=== PATIENT | female | born 1965 | race American Indian/Alaskan Native ===

== ENCOUNTER 2017-09-19 14:13 | Inpatient (IN) | payer BC, OTHER ==
--- NOTE | 2017-09-19 14:57 | Emergency Department Report ---
Chief Complaint: Chest Pain Stated Complaint: CHEST PAIN Time Seen by Provider: 09/19/17 14:44 - HPI History of Present Illness: 52-year-old female with a history of diabetes on insulin 70/30 presents to ED complaining of chest pain times today. Patient states she has been feeling generalized weakness for the past couple of days. Patient states she has been started today. She states chest pain feels like a pressure type pain in her chest. She denies radiation anywhere else. Patient also admits to sore throat that hurts when she swallows. Patient states she took her insulin this morning and her blood glucose has been in the 300s and was 390 something this morning. Patient states she has not eating today He denies serious last chills/nausea/vomiting/abdominal pain - ROS Review of Systems: As noted in HPI - Exam Vital Signs: Vital Signs 09/19/17 14:26 Temperature 100.1 F H Pulse Rate 81 Respiratory 20 Rate Blood Pressure 185/87 O2 Sat by Pulse 99 Oximetry Physical Exam: GENERAL: Alert and oriented x3, no apparent distress, Normal Gait, atraumatic. HEAD: Head is normocephalic and a-traumatic. EYES: Extra ocular muscles are intact. Pupils are equal, round, and reactive to light and accommodation. EARS: symetrical, atraumatic, non tender, ear canal clear and moderate cerumen, tympanic membrance non inflamed. gross auditory nml bilaterally. NOSE: Nose symetrical, Nontender,Nares appeared normal. MOUTH:Mouth is well hydrated and without lesions. Tonsils and Uvula not visualized, Tongue elevated. Patient unable to all plan wide enough to see uvula and tonsils. Patent airways. NECK: Supple. Non edematous, No carotid bruits. No lymphadenopathy or thyromegaly. No C-spine tenderness LUNGS: Symetrical with respiration, No wheezing, no rales or crackles, CTAB. HEART: S1, S2 present, regular rate and rhythm without murmur, no rubs, no gallops. Non tender to palpation SKIN: Warm and dry, No lesions, No ulceration or induration present. MSE screening note: Focused history and physical exam performed. Due to findings the following was ordered: ED Medical Decision Making - Medical Decision Making 52-year-old female presents in mild distress due to pain CBC, CMP, normal saline, hyperglycemia protocol ordered. Point of care glucose fingerstick was greater than 500. Patient to be placed in a hallway bed or find one as soon as possible to start fluids. charge nurse notified Patient's recent lady physician ED Disposition for MSE Condition: Stable
[2017-09-19 15:32] LABS: Basophils % (Auto) 0.7 % (0.0-1.8); Eosinophils % (Auto) 0.2 % (0.0-4.3); Hematocrit 37.1 % (30.3-42.9); Hemoglobin 12.5 gm/dl (10.1-14.3); Mean Corpuscular HGB Conc 34 % (30-34); Mean Corpuscular Hemoglobin 29 pg (28-32); Mean Corpuscular Volume 86 fl (79-97); Platelet Count 182 K/mm3 (140-440); Red Blood Count 4.32 M/mm3 (3.65-5.03); Red Cell Distribution Width 14.2 % (13.2-15.2)
[2017-09-19 15:50] LABS: Alanine Aminotransferase 27 units/L (7-56); Albumin 3.8 g/dL (3.9-5); Albumin/Globulin Ratio 1.1 %; Alkaline Phosphatase 137 units/L (35-129); Anion Gap 27 mmol/L; BUN/Creatinine Ratio 22; Blood Urea Nitrogen 22 mg/dL (7-17); Calcium 8.7 mg/dL (8.4-10.2); Carbon Dioxide 18 mmol/L (22-30); Chloride 91.2 mmol/L (98-107); Potassium 4.2 mmol/L (3.6-5.0); Sodium 132 mmol/L (137-145); Total Protein 7.4 g/dL (6.3-8.2)
[2017-09-19 15:51] LABS: Bilirubin,Urine NEG (Negative); Blood,Urine SM (Negative); Ketones,Urine 20 mg/dL (Negative); Leukocyte Esterase,Urine NEG (Negative); Mucus,Urine FEW /HPF; Nitrite,Urine NEG (Negative); Protein,Urine <15 mg/dL mg/dL (Negative); Urobilinogen,Urine < 2.0 mg/dL (<2.0)
[2017-09-19 15:53] LABS: Glucose 558 mg/dL (65-100)
[2017-09-19] MEDS ORDERED: NACL 0.9% 1000 ML 1,000 ML ONE (15:55)
[2017-09-19] MEDS ORDERED: D50W (25GM) Syringe IV PRN (17:42)
[2017-09-19] MEDS ORDERED: TORADOL IV ONE (17:54)
[2017-09-19] MEDS ORDERED: TYLENOL PO ONE (17:56)
[2017-09-19] MEDS ORDERED: NovoLIN R 100 UNITS in NACL 0.9% 99 ML IV SCH (18:00)
--- NOTE | 2017-09-19 18:51 | Emergency Department Report ---
ED Chest Pain HPI - General Chief Complaint: Chest Pain Stated Complaint: CHEST PAIN Time Seen by Provider: 09/19/17 14:44 Source: patient Mode of arrival: Ambulatory Limitations: No Limitations - History of Present Illness Initial Comments: 52 YO TYPE I DM HER WITH C/O CHEST PAIN, COUGHING WEAKNESS, FEVER FOR 2 DAYS. PT IS C/O LEFT FOOT PAIN WELL. PT FEELS THAT THERE IS A PULLING IN HER CHEST. SHE ALSO HAD A SORE THROAT YESTERDAY AND HEADACHE. SHE HAS BEEN A DIABETIC SINCE 5 YEARS OLD. Severity scale (0 -10): 8 - Related Data Allergies Allergy/AdvReac Type Severity Reaction Status Date / Time No Known Allergies Allergy Unverified 09/19/17 14:26 Heart Score - HEART Score History: Slightly suspicious Age: 45-65 Risk factors: 1-2 risk factors Troponin: < normal limit ED Review of Systems ROS: Stated complaint: CHEST PAIN Other details as noted in HPI Constitutional: denies: chills, fever Eyes: denies: eye pain, eye discharge, vision change ENT: throat pain. denies: ear pain Respiratory: denies: cough, shortness of breath, wheezing Cardiovascular: denies: chest pain, palpitations Endocrine: no symptoms reported Gastrointestinal: denies: abdominal pain, nausea, diarrhea Genitourinary: denies: urgency, dysuria, discharge Musculoskeletal: arthralgia (LEFT FOOT-RECURRENT). denies: back pain, joint swelling Skin: denies: rash, lesions Neurological: headache, weakness. denies: paresthesias Psychiatric: denies: anxiety, depression Hematological/Lymphatic: denies: easy bleeding, easy bruising ED Past Medical Hx - Past Medical History Previous Medical History?: Yes Hx Hypertension: Yes Hx Diabetes: Yes (Type 1) Additional medical history: Left foot pain - Surgical History Past Surgical History?: Yes Additional Surgical History: - Social History Smoking Status: Never Smoker Substance Use Type: Prescribed ED Physical Exam - General Limitations: No Limitations ED Course Vital Signs 09/19/17 09/19/17 09/19/17 14:26 15:19 15:38 Temperature 100.1 F H Pulse Rate 81 66 Respiratory 20 Rate Blood Pressure 185/87 Blood Pressure 156/72 [Left] O2 Sat by Pulse 99 99 100 Oximetry 09/19/17 19:19 Temperature Pulse Rate 69 Respiratory 20 Rate Blood Pressure Blood Pressure 156/76 [Left] O2 Sat by Pulse 100 Oximetry ED Medical Decision Making - Lab Data Result diagrams: 09/19/17 15:01 09/19/17 15:01 - Medical Decision Making RAPID STREP AND RAPID INFLUENZA HAVE NOT BEEN COLLECTED BY THE PRIOR NURSE. CURRENT NNURSE JUST TOLD TO COLLECT THESE Critical care attestation.: If time is entered above; I have spent that time in minutes in the direct care of this critically ill patient, excluding procedure time. ED Disposition Clinical Impression: HTN (hypertension) DKA (diabetic ketoacidoses) Qualifiers: Diabetes mellitus type: type 1 Diabetes mellitus complication detail: without coma Qualified Code(s): E10.10 - Type 1 diabetes mellitus with ketoacidosis without coma Fever Qualifiers: Fever type: unspecified Qualified Code(s): R50.9 - Fever, unspecified Does the pt Need Aspirin: No Condition: Stable Instructions: Diabetic Ketoacidosis (ED), Hypertension (ED) Referrals: JADIEL GARZA MD [Primary Care Provider] - 3-5 Days Time of Disposition: 19:10 (CASE REVIEWED WITH DR LING AND HE WILL DISCUSS HER [employer] INCOMING HOSPITALIST AND FET HER ADMITTED)
[2017-09-19] MEDS ORDERED: NACL 0.9% 1000 ML 1,000 ML IV ONE (19:11)
[2017-09-19] MEDS ORDERED: cefTRIAXone 1 GM in NACL 0.9% 20 ML IV SCH (19:15)
[2017-09-19] MEDS ORDERED: ZITHROMAX 500 MG in NACL 0.9% 250ML 250 ML IV ONE (20:00)
[2017-09-19] MEDS ORDERED: ROCEPHIN 1,000 MG in NACL 0.9% 50 ML IV NR (20:00)
--- NOTE | 2017-09-19 20:01 | XRay Report ---
FINAL REPORT PROCEDURE: XR CHEST 1V AP TECHNIQUE: Chest radiograph anteroposterior view. CPT 42038 HISTORY: Cough. Fever. Chest pain. COMPARISON: No prior studies are available for comparison. FINDINGS: Heart: The heart size is top-normal. Mediastinum/Vessels: Mild aortic tortuosity. Lungs/Pleural space: Normal. Bony thorax: Mild degenerative changes of the spine. Small subchondral cysts in the left greater tuberosity. Life support devices: None. IMPRESSION: No radiographic evidence of acute cardiopulmonary disease.
[2017-09-19 20:08] LABS: Magnesium 1.9 mg/dL (1.7-2.3); Phosphorous 3.1 mg/dL (2.5-4.5)
[2017-09-19 20:08] LABS: Anion Gap 26 mmol/L; BUN/Creatinine Ratio 20; Blood Urea Nitrogen 18 mg/dL (7-17); Calcium 8.6 mg/dL (8.4-10.2); Carbon Dioxide 16 mmol/L (22-30); Chloride 96.4 mmol/L (98-107); Glucose 383 mg/dL (65-100); Potassium 4.1 mmol/L (3.6-5.0); Sodium 134 mmol/L (137-145)
[2017-09-19 20:10] LABS: Creatine Kinase MB 2.1 ng/mL (0.0-4.0)
[2017-09-19 20:12] LABS: Creatine Kinase 115 units/L (30-135)
[2017-09-19 21:45] LABS: Chloride 95.3 mmol/L (98-107); Sodium 134 mmol/L (137-145)
[2017-09-19 21:46] LABS: Anion Gap 25 mmol/L; BUN/Creatinine Ratio 20; Blood Urea Nitrogen 18 mg/dL (7-17); Calcium 8.7 mg/dL (8.4-10.2); Carbon Dioxide 18 mmol/L (22-30); Glucose 369 mg/dL (65-100)
[2017-09-20 00:05] LABS: Anion Gap 21 mmol/L; BUN/Creatinine Ratio 18; Blood Urea Nitrogen 20 mg/dL (7-17); Calcium 8.5 mg/dL (8.4-10.2); Carbon Dioxide 20 mmol/L (22-30); Chloride 102.1 mmol/L (98-107); Glucose 158 mg/dL (65-100); Potassium 3.2 mmol/L (3.6-5.0); Sodium 140 mmol/L (137-145)
[2017-09-20] MEDS: KCL 10MEQ/100ML 10 MEQ/100 ML BAG IV SCH ×2 (00:33→00:34)
[2017-09-20] MEDS ORDERED: D5W/0.45% NACL/KCL 20 MEQ 20 MEQ/1,000 ML BAG IV SCH (01:00)
[2017-09-20 02:46] LABS: Anion Gap 19 mmol/L; BUN/Creatinine Ratio 18; Blood Urea Nitrogen 18 mg/dL (7-17); Calcium 7.1 mg/dL (8.4-10.2); Carbon Dioxide 19 mmol/L (22-30); Sodium 130 mmol/L (137-145)
[2017-09-20 03:08] LABS: Glucose 735 mg/dL (65-100); Potassium 6.6 mmol/L (3.6-5.0)
[2017-09-20] MEDS ORDERED: CALCIUM CHLORIDE 1,000 MG in NACL 0.9% 100 ML IV ONE (04:02)
[2017-09-20] MEDS ORDERED: ZOFRAN IV PRN (04:04)
[2017-09-20] MEDS ORDERED: MILK OF MAGNESIA PO PRN (04:04)
[2017-09-20] MEDS ORDERED: DULCOLAX PR PRN (04:04)
[2017-09-20] MEDS ORDERED: D5/0.45NS 1,000 ML IV SCH (05:00)
[2017-09-20 05:37] LABS: Creatine Kinase MB 1.8 ng/mL (0.0-4.0)
[2017-09-20 05:38] LABS: Creatine Kinase 103 units/L (30-135)
--- NOTE | 2017-09-20 05:42 | History and Physical Report ---
History of Present Illness Date of examination: 09/20/17 Date of admission: 09/20/17 04:04 History of present illness: 53-year-old hypertension, diabetes, Charcot foot,'s emergency room with complains of generalized weakness, nausea and vomiting 2 days. Stated that her blood sugar was high and also her blood pressure with systolic greater than 180. She had headache but that is resolved. Also complaining of chest pain in the epigastric area which she describes as tightness, intermittent in nature over 3 minutes, intensity 5-10, no radiation, she cannot identify exacerbating or relieving factors. Denies shortness breath, diaphoresis and palpitations Review Of Systems: Constitutional: no weight loss Ears, eyes, nose, mouth and throat: no nasal congestion, no nasal discharge, no sinus pressure, blurry vision, diplopia Neck: No neck pain or rigidity. Cardiovascular: No chest pain, palpitations Respiratory: No shortness of breath, cough Gastrointestinal: No abdominal pain, hematochezia Genitourinary : no dysuria, frequency , hematuria Musculoskeletal: no muscle ache Integumentary: no rash, no pruritis Neurological: no parathesias, focal weakness Endocrine: no cold or heat intolerance, no polyuria or polydipsia Hematologic/Lymphatic: no easy bruising, no easy bleeding, no gland swelling Allergic/Immunologic: no urticaria, no angioedema. PAST MEDICAL HISTORY:hypertension, diabetes, Charcot foot,'s PAST SURGICAL HISTORY: FAMILY HISTORY: Hypertension, diabetes SOCIAL HISTORY: Medications and Allergies Allergies Allergy/AdvReac Type Severity Reaction Status Date / Time No Known Allergies Allergy Unverified 09/19/17 14:26 Active Meds: Active Medications Acetaminophen (Tylenol) 650 mg PO Q4H PRN PRN Reason: Pain MILD(1-3)/Fever >100.5/CONCEPCION Bisacodyl (Dulcolax) 10 mg [place] QDAY PRN PRN Reason: Constipation unrelieved by MOM Dextrose (D50w (25gm) Syringe) 0 ml IV PRN PRN PRN Reason: Hypoglycemia Enoxaparin Sodium (Lovenox) 40 mg SUB-Q QDAY WADE Insulin Human Regular 100 (units/ Sodium Chloride) 100 mls @ 7.5 mls/hr IV TITR WADE; 7.5 UNITS/HR PRN Reason: Protocol Last Titration: 09/20/17 04:37 Dose: 2.5 units/hr, 2.5 mls/hr Ceftriaxone Sodium 1 gm/ (Sodium Chloride) 20 mls @ 20 mls/10 min IV PREOP WADE Stop: 09/20/17 06:00 Last Admin: 09/19/17 21:38 Dose: 20 mls/10 min Dextrose/Sodium Chloride (D5/0.45ns) 1,000 mls @ 125 mls/hr IV DIRECT WADE Last Admin: 09/20/17 04:34 Dose: 125 mls/hr Magnesium Hydroxide (Milk Of Magnesia) 30 ml PO Q4H PRN PRN Reason: Constipation Ondansetron HCl (Zofran) 4 mg IV Q8H PRN PRN Reason: N/V unrelieved by Reglan Exam - Physical Exam Narrative exam: Gen. appearance: Patient lying in bed in no acute distress HEENT: Normocephalic/atraumatic, pupils equal round reactive to light, extra occular movement intact, no scleral icterus, no JVD or thyromegaly or nodule, neck is supple, mucous membrane moist, no erythema or exudate Heart: S1-S2, regular rate and rhythm Lungs: Clear to auscultation bilateral breathing comfortable Abdomen: Positive bowel sounds, nontender, nondistended, no organomegaly Extremities: No edema, cyanosis, clubbing Neuro:: Oriented 3 , cranial nerves II-12 intact, speech, motor intact Skin: No rash, nodules, warm dry - Constitutional Vitals: Temp Pulse Resp BP Pulse Ox 100.1 F H 65 17 135/67 96 09/19/17 14:26 09/20/17 03:00 09/20/17 03:00 09/20/17 03:00 09/20/17 03:00 Results - Labs CBC & Chem 7: 09/19/17 15:01 09/20/17 02:05 Labs: Abnormal lab results 09/19/17 09/19/17 09/19/17 Range/Units 14:40 15:01 15:01 [place] % (Auto) 14.6 H (0.0-7.3) % Lymph # 1.0 L (1.2-5.4) K/mm3 Sodium 132 L (137-145) mmol/L Potassium (3.6-5.0) mmol/L Chloride 91.2 L (98-107) mmol/L Carbon Dioxide 18 L (22-30) mmol/L BUN 22 H (7-17) mg/dL Glucose 558 H* (65-100) mg/dL POC Glucose > 500 H (70-105) Calcium (8.4-10.2) mg/dL Alkaline Phosphatase 137 H (35-129) units/L Albumin 3.8 L (3.9-5) g/dL 09/19/17 09/19/17 09/19/17 Range/Units 18:40 19:30 19:53 [place] % (Auto) (0.0-7.3) % Lymph # (1.2-5.4) K/mm3 Sodium 134 L (137-145) mmol/L Potassium (3.6-5.0) mmol/L Chloride 96.4 L (98-107) mmol/L Carbon Dioxide 16 L (22-30) mmol/L BUN 18 H (7-17) mg/dL Glucose 383 H (65-100) mg/dL POC Glucose 363 H 337 H (70-105) Calcium (8.4-10.2) mg/dL Alkaline Phosphatase (35-129) units/L Albumin (3.9-5) g/dL 09/19/17 09/19/17 09/19/17 Range/Units 20:59 21:02 22:07 [place] % (Auto) (0.0-7.3) % Lymph # (1.2-5.4) K/mm3 Sodium 134 L (137-145) mmol/L Potassium (3.6-5.0) mmol/L Chloride 95.3 L (98-107) mmol/L Carbon Dioxide 18 L (22-30) mmol/L BUN 18 H (7-17) mg/dL Glucose 369 H (65-100) mg/dL POC Glucose 275 H 224 H (70-105) Calcium (8.4-10.2) mg/dL Alkaline Phosphatase (35-129) units/L Albumin (3.9-5) g/dL 09/19/17 09/19/17 09/20/17 Range/Units 23:13 23:15 00:27 [place] % (Auto) (0.0-7.3) % Lymph # (1.2-5.4) K/mm3 Sodium (137-145) mmol/L Potassium 3.2 L (3.6-5.0) mmol/L Chloride (98-107) mmol/L Carbon Dioxide 20 L (22-30) mmol/L BUN 20 H (7-17) mg/dL Glucose 158 H (65-100) mg/dL POC Glucose 158 H 114 H (70-105) Calcium (8.4-10.2) mg/dL Alkaline Phosphatase (35-129) units/L Albumin (3.9-5) g/dL 09/20/17 09/20/17 09/20/17 Range/Units 01:40 02:05 03:12 [place] % (Auto) (0.0-7.3) % Lymph # (1.2-5.4) K/mm3 Sodium 130 L D (137-145) mmol/L Potassium 6.6 H* D (3.6-5.0) mmol/L Chloride (98-107) mmol/L Carbon Dioxide 19 L (22-30) mmol/L BUN 18 H (7-17) mg/dL Glucose 735 H* (65-100) mg/dL POC Glucose 113 H 156 H (70-105) Calcium 7.1 L D (8.4-10.2) mg/dL Alkaline Phosphatase (35-129) units/L Albumin (3.9-5) g/dL 09/20/17 Range/Units 04:26 [place] % (Auto) (0.0-7.3) % Lymph # (1.2-5.4) K/mm3 Sodium (137-145) mmol/L Potassium (3.6-5.0) mmol/L Chloride (98-107) mmol/L Carbon Dioxide (22-30) mmol/L BUN (7-17) mg/dL Glucose (65-100) mg/dL POC Glucose 170 H (70-105) Calcium (8.4-10.2) mg/dL Alkaline Phosphatase (35-129) units/L Albumin (3.9-5) g/dL - Imaging and Cardiology EKG: image reviewed Chest x-ray: image reviewed Assessment and Plan Assessment DKA Hyperkalemia and metabolic acidosis SIRS Hypertension Plan Admit to medicine Start IV fluids, insulin drip Check serial chemistry, blood sugars Give a dose of calcium IV, start IV antibiotic pending cultures Check cardiac enzymes, stress test once off insulin drip DVT prophylaxis
[2017-09-20] MEDS: LEVAQUIN 750MG/150ML 750 MG/150 ML BAG IV SCH (09:42)
[2017-09-20] MEDS ORDERED: LOVENOX SUB-Q SCH (10:00)
[2017-09-20 10:58] LABS: Anion Gap 19 mmol/L; BUN/Creatinine Ratio 21; Blood Urea Nitrogen 17 mg/dL (7-17); Carbon Dioxide 23 mmol/L (22-30); Chloride 99.4 mmol/L (98-107); Glucose 233 mg/dL (65-100); Potassium 3.9 mmol/L (3.6-5.0); Sodium 137 mmol/L (137-145)
[2017-09-20 11:02] LABS: Creatine Kinase 103 units/L (30-135)
[2017-09-20] MEDS ORDERED: ELIQUIS PO SCH (13:00)
[2017-09-20] MEDS: BABY ASPIRIN PO SCH (13:11)
[2017-09-20] MEDS: COZAAR PO SCH (13:11)
--- NOTE | 2017-09-20 13:33 | XRay Report ---
LEFT FOOT, 2 views: History: Left foot pain. Pes planus is evident. There is a remodeling/healing fracture of the shaft of the third metatarsal. No acute fracture is appreciated. 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 No erosive joint pathology. The soft tissues are within normal limits. IMPRESSION: No acute process noted. Remodeling fracture of the third metatarsal. Degenerative changes.
[2017-09-20] MEDS: NACL 0.9% 1000 ML 1,000 ML IV SCH (14:25)
[2017-09-20] MEDS: TYLENOL PO PRN (14:25)
[2017-09-20] MEDS: ELIQUIS PO SCH ×2 (14:56→23:57)
--- NOTE | 2017-09-20 15:01 | Event Note ---
Date: 09/20/17 Patient with DKA. admitted this morning. Blood glucose improved. Will d/c Insulin drip, start Novolin 70/30, transfer to Med/surg.
[2017-09-20 18:50] LABS: Anion Gap 19 mmol/L; BUN/Creatinine Ratio 24; Blood Urea Nitrogen 17 mg/dL (7-17); Calcium 8.8 mg/dL (8.4-10.2); Carbon Dioxide 22 mmol/L (22-30); Chloride 99.7 mmol/L (98-107); Glucose 307 mg/dL (65-100); Sodium 137 mmol/L (137-145)
[2017-09-20] MEDS ORDERED: D50W (25GM) Syringe IV PRN (20:33)
[2017-09-21] MEDS: TYLENOL PO PRN (00:06)
[2017-09-21] MEDS: NOVOLOG SUB-Q SCH ×3 (00:08→12:16)
[2017-09-21] MEDS ORDERED: APRESOLINE IV PRN (00:43)
--- NOTE | 2017-09-21 07:47 | Event Note ---
Date: 09/21/17 Patient has a PCP, Dr. Mccauley and I discussed with him yesterday and he agreed to accept patient to be transfered to his service. I also discussed with Nursing staff.
[2017-09-21] MEDS: NACL 0.9% 1000 ML 1,000 ML IV SCH (08:54)
[2017-09-21] MEDS ORDERED: TOPROL XL PO SCH (10:00)
[2017-09-21] MEDS: LEVAQUIN 750MG/150ML 750 MG/150 ML BAG IV SCH (10:10)
[2017-09-21] MEDS: BABY ASPIRIN PO SCH (10:11)
[2017-09-21] MEDS ORDERED: LEVAQUIN 500MG/100ML 500 MG/100 ML BAG IV SCH (11:00)
[2017-09-21] MEDS: ELIQUIS PO SCH (11:04)
[2017-09-21] MEDS: COZAAR PO SCH (11:04)
--- NOTE | 2017-09-21 14:55 | Discharge Summary ---
Providers - Providers Date of Admission: 09/20/17 04:04 Date of discharge: 09/21/17 Attending physician: DIANELYS OLEARY Primary care physician: JADIEL GARZA Hospitalization Reason for admission: DKA , hyperglycemia Condition: Good Hospital course: 52 year old female admitted with Blood glucose of over 700 and in DKA .Patient initially admitted to the hospitalist services and now transferred to my service today . Patient was placed on IV Insulin and IV normal saline with promt improvement inblood glucose and now DKA has recolved and the initial hyperkalemia resolved as well .Patient stated that her symptoms was preceded by URI symptoms as well as fever which have now resolved . Patient now asessed to be stable enough for discharge and feels better overall Patient will be discharged home today to followup as outpatient in 2 weeks Disposition: DC-01 TO HOME OR SELFCARE - Discharge Diagnoses (1) DKA (diabetic ketoacidoses) Status: Resolved Qualifiers: Diabetes mellitus type: type 1 Diabetes mellitus complication detail: without coma Qualified Code(s): E10.10 - Type 1 diabetes mellitus with ketoacidosis without coma (2) Fever Status: Resolved Qualifiers: Fever type: unspecified Qualified Code(s): R50.9 - Fever, unspecified (3) HTN (hypertension) Status: Chronic Core Measure Documentation - Palliative Care Palliative Care/ Comfort Measures: Not Applicable - Core Measures Any of the following diagnoses?: none Exam - Constitutional Vitals: Temp Pulse Resp BP Pulse Ox 98.3 F 73 20 140/77 100 09/21/17 11:21 09/21/17 11:21 09/21/17 11:21 09/21/17 11:21 09/21/17 11:33 General appearance: Present: no acute distress - EENT Eyes: Present: PERRL, EOM intact ENT: hearing intact, clear oral mucosa, dentition normal - Neck Neck: Present: supple, normal ROM - Respiratory Respiratory effort: normal Respiratory: bilateral: CTA - Cardiovascular Rhythm: regular Heart Sounds: Present: S1 & S2 - Extremities Extremities: no ischemia, pulses symmetrical, normal temperature, normal color Peripheral Pulses: within normal limits - Abdominal General gastrointestinal: Present: soft, non-tender, non-distended, normal bowel sounds Female genitourinary: Present: deferred - Rectal Rectal Exam: deferred - Integumentary Integumentary: Present: clear, warm - Musculoskeletal Musculoskeletal: strength equal bilaterally - Psychiatric Psychiatric: appropriate mood/affect, cooperative - Neurologic Neurologic: CNII-XII intact, moves all extremities Plan Activity: no restrictions Weight Bearing Status: Full Weight Bearing Diet: low salt, diabetic Follow up with: JADIEL GARZA MD [Primary Care Provider] - 3-5 Days Prescriptions: Azithromycin [Zithromax Z-DENNYS] 250 mg PO DAILY #7 tab
[2017-09-21 16:22] LABS: Alanine Aminotransferase 24 units/L (7-56); Albumin 3.8 g/dL (3.9-5); Albumin/Globulin Ratio 1.3 %; Alkaline Phosphatase 117 units/L (35-129); Anion Gap 19 mmol/L; BUN/Creatinine Ratio 14; Blood Urea Nitrogen 13 mg/dL (7-17); Carbon Dioxide 25 mmol/L (22-30); Chloride 102.1 mmol/L (98-107); Glucose 196 mg/dL (65-100); Potassium 4.2 mmol/L (3.6-5.0); Sodium 142 mmol/L (137-145); Total Protein 6.8 g/dL (6.3-8.2)
[2017-09-21 17:33] VITALS: BP 150/71
[2017-09-22] MEDS ORDERED: LEVAQUIN 750MG/150ML 750 MG/150 ML BAG IV SCH (10:00)
== END 2017-09-21 17:45 | disposition home or self-care (01) | DRG 638 ==
LOC: ED 14:13 → CC1 09-20 04:04 → 3A 09-20 12:51 → 3B-SURG 09-20 15:17
PROVIDERS: ADMIT Internal Medicine; ATTEND Internal Medicine
DX: E10.10 Type 1 diabetes mellitus with ketoacidosis without coma (principal); R65.10 Systemic inflammatory response syndrome (SIRS) of non-infectious origin without acute organ dysfunction; I10 Essential (primary) hypertension; Z83.3 Family history of diabetes mellitus; Z82.49 Family history of ischemic heart disease and other diseases of the circulatory system; E87.5 Hyperkalemia
CPT/HCPCS: 36415; 71010; 80048; 80053; 81001; 82550; 82553; 82805; 82962; 83735; 84100; 84484; 84703; 85025; 85379; 87040; 87116; 87400; 87430; 93005; 93010; 99285; J0360; J0456; J0696; J1650; J1815; J1885; J1956; J3480; J7030; J7050